=== PATIENT | female | born 2005 | race African-American/Black ===

== ENCOUNTER 2024-06-19 14:12 | Emergency (ER) | payer BC, SELFPAY ==
--- NOTE | ~2024-06-19 | XR_ITS ---
XR chest 2V Ordering provider: Aida Rust MD History: 18 years Female with . syncope . Comparison: None. FINDINGS: MEDIASTINUM: The cardiac silhouette is not enlarged. LUNGS: No infiltrates, effusions or pneumothorax. OTHER: No free air under the diaphragm. IMPRESSION: No acute cardiopulmonary pathology. Reviewed, dictated and finalized at location A.
[2024-06-19 14:21] VITALS: BP 110/68; PULSE 102; RESP 16; TEMP 36.4; O2SAT 100
[2024-06-19 15:16] VITALS: BP 102/79; PULSE 89; RESP 16; O2SAT 100
--- NOTE | 2024-06-19 16:16 | ECG_ITS ---
Test Date: 2024-06-19 16:20:54 Measurements Intervals [place] Rate: 111 P: 57 [place]: 123 QRS: 55 QRSD: 77 T: 57 QT: 309 QTc: 421 Interpretive Statements SINUS TACHYCARDIA EARLY PRECORDIAL R/S TRANSITION MINIMAL Q WAVES- HIGH LATERAL LEADS BASELINE ARTIFACT- I, II, III, AVR, AVL, AVF ABNORMAL ECG No previous ECG available for comparison Electronically Signed On 06-19-2024 19:23:15 CDT by Prashanth Wilson D.O.
[2024-06-19 16:45] LABS: Basophils Percent Auto 0.5 % (0.2-1.2); Eosinophils Absolute Auto 0.2 K/mm3 (0-0.3); Eosinophils Percent Auto 3.7 % (0-4.4); Hematocrit 36.1 % (37.0-47.0); Immature Granulocyte Absolute 0.01 K/mm3 (0.00-0.031); Immature Granulocyte Percent A 0.2 % (0-0.5); Lymphocytes Absolute Auto 2.46 K/mm3 (0.9-3.2); Lymphocytes Percent Auto 42.9 % (18.3-44.2); Mean Corpuscular HGB Conc 33.2 g/dl (32-36); Mean Corpuscular Hemoglobin 30.5 pg (26-34); Mean Corpuscular Volume 91.9 fl (80-100); Mean Platelet Volume 11.2 fl (7.4-10.4); Monocytes Absolute Auto 0.4 K/mm3 (0.1-0.6); Monocytes Percent Auto 7.3 % (2.6-8.5); Neutrophils Absolute Auto 2.6 K/mm3 (1.3-6.7); Neutrophils Percent Auto 45.4 % (45.5-73.1); Platelet Count Result 283 k/mm3 (150-375); Red Blood Count 3.93 M/mm3 (4.2-5.4); Red Cell Distribution Width 12.8 % (11.5-14.5); White Blood Count 5.7 K/mm3 (4.5-10.0)
[2024-06-19 16:51] VITALS: BP 101/59; PULSE 82; RESP 14; O2SAT 99
[2024-06-19 16:51] LABS: BEDSIDEPREGUCG Negative (Negative)
[2024-06-19 16:53] VITALS: BP 114/55; PULSE 90; RESP 16; O2SAT 99
[2024-06-19 16:55] VITALS: BP 106/58; PULSE 104; RESP 16; O2SAT 99
[2024-06-19 16:55] LABS: Alanine Aminotransferase 13 U/L (6-35); Albumin Level 4.3 g/dL (3.5-5.1); Alkaline Phosphatase 74 U/L (38-126); Anion Gap 9 mmol/L (4-12); Aspartate Amino Transferase 23 U/L (14-36); Bilirubin,Total 0.3 mg/dL (0.2-1.3); Blood Urea Nitrogen 10 mg/dL (7-17); Calcium 9.4 mg/dL (8.4-10.2); Carbon Dioxide 25 mmol/L (22-30); Chloride 106 mmol/L (98-107); Estimated CRCL calculation 77 ml/min; Estimated Glomerular Filt Rate > 60; Glucose 85 mg/dL (65-110); Potassium 3.9 mmol/L (3.4-5.0); Sodium 140 mmol/L (137-145)
[2024-06-19] MEDS: SODIUM CHLORIDE 0.9% IV 1,000 ML 999 ML IV CONT (17:11)
--- NOTE | 2024-06-19 17:33 | ED.DIZZY ---
HPI - Dizziness General Chief Complaint: Syncope Stated Complaint: syncope Time Seen by Provider: 06/19/24 15:14 History of Present Illness HPI Narrative: 18-year-old female presenting after syncopal episode. States that she was walking home when she started feeling very lightheaded and nauseated. States that she thinks that she passed out but she was able to gently lower herself to the ground. She did not strike her head. States that she remembers the entire event. States that she did not eat anything this morning. Currently, she denies any complaints. She denies chest pain, shortness of breath, palpitations, vomiting, leg swelling, abdominal pain. Denies family history of sudden cardiac . Related Data Allergies Allergy/AdvReac Type Severity Reaction Status Date / Time No Known Allergies Allergy Verified 06/19/24 14:26 Review of Systems Review of Systems: All systems reviewed & are unremarkable except as noted in HPI and below Exam Narrative: GENERAL: Well-appearing, in no acute distress HEAD: Normocephalic, atraumatic. EYES: PERRLA and EOMI. ENT: Mucous membranes moist. NECK: Supple. CHEST: Clear to auscultation. No respiratory distress. HEART: Regular rate and rhythm ABDOMEN: Soft, nontender, nondistended EXTREMITIES: Normal range of motion. SKIN: Warm, dry, no rash. NEURO: Alert and oriented x3. PSYCH: Normal mood and affect. Course Vital Signs Vital signs: Vital Signs Temperature 97.6 F 06/19/24 14:21 Pulse Rate 102 H 06/19/24 14:21 Respiratory Rate 16 06/19/24 14:21 Blood Pressure 110/68 06/19/24 14:21 Pulse Oximetry 100 06/19/24 14:21 Oxygen Delivery Room Air 06/19/24 14:21 Temperature 97.6 F 06/19/24 14:21 Pulse Rate 104 H 06/19/24 16:55 Respiratory Rate 16 06/19/24 16:55 Blood Pressure 106/58 L 06/19/24 16:55 Pulse Oximetry 99 06/19/24 16:55 Oxygen Delivery Room Air 06/19/24 14:21 MDM - Dizziness MDM Narrative Medical decision making narrative: 18-year-old female presenting after syncopal episode. Patient a bit tachycardic, was vitals are within normal limits. Exam remarkable for the above. EKG per my interpretation shows sinus tachycardia, no ST elevations or depressions. Blood work is unremarkable. Patient given a L of fluids and her tachycardia has resolved. She denies any complaints mode like to go home which I think is reasonable. Discussed appropriate supportive care and return precautions given. Patient is agreeable this plan. Discharged in stable condition. Differential Diagnosis Differential diagnosis: Likely orthostatic hypotension and other (Vasovagal syncope, dehydration) Medical Records Attestation: I reviewed the patient's medical records. Lab Data Attestation: I reviewed the patient's lab results. 06/19/24 16:40 06/19/24 16:40 Labs: Lab Results 06/19/24 06/19/24 Range/Units 16:40 16:49 WBC 5.7 (4.5-10.0) K/mm3 RBC 3.93 L (4.2-5.4) M/mm3 Hgb 12.0 (12.0-15.0) g/dL Hct 36.1 L (37.0-47.0) % MCV 91.9 (80-100) fl MCH 30.5 (26-34) pg MCHC 33.2 (32-36) g/dl RDW 12.8 (11.5-14.5) % Plt Count 283 (150-375) k/mm3 MPV 11.2 H (7.4-10.4) fl Immature Gran % (Auto) 0.2 (0-0.5) % Neut % (Auto) 45.4 L (45.5-73.1) % Lymph % (Auto) 42.9 (18.3-44.2) % Geary % (Auto) 7.3 (2.6-8.5) % Eos % (Auto) 3.7 (0-4.4) % Baso % (Auto) 0.5 (0.2-1.2) % Lymph # (Auto) 2.46 (0.9-3.2) K/mm3 Geary # (Auto) 0.4 (0.1-0.6) K/mm3 Eos # (Auto) 0.2 (0-0.3) K/mm3 Baso # (Auto) 0.0 (0.0-0.1) K/mm3 Abs Immat Gran (auto) 0.01 (0.00-0.031) K/mm3 Absolute Neuts (auto) 2.6 (1.3-6.7) K/mm3 Absolute Nucleated RBC 0.000 (0.0-0.012) K/mm3 Nucleated RBC % 0.0 (0.0-0.2) % Sodium 140 (137-145) mmol/L Potassium 3.9 (3.4-5.0) mmol/L Chloride 106 (98-107) mmol/L Carbon Dioxide 25 (22-30) mmol/L Anion Gap 9 (4-12) mmol/L BU
[2024-06-19 18:30] VITALS: BP 118/80; PULSE 96; RESP 18; TEMP 36.6; O2SAT 100
== END 2024-06-19 19:04 | disposition home or self-care (01) ==
PROVIDERS: Emergency Provider Emergency Medicine
DX: R55 Syncope and collapse (principal)
CPT/HCPCS: 36415; 71046; 80053; 81025; 85025; 93005; 96360; 99284; J7030